=== PATIENT | female | born 1945 | race Caucasian/White ===

== ENCOUNTER 2016-11-04 20:30 | Inpatient (IN) | payer MEDICARE ==
[~2016-11-04] VITALS: Ht 160 cm; Wt 65.8 kg
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
[2016-11-04] MEDS ORDERED: IV NS 0.9% 1,000 ML ONE ×2 (20:46→22:20)
[2016-11-04] MEDS ORDERED: diphenhydrAMINE HCL 50 MG/ML VIAL ONE (20:46)
[2016-11-04] MEDS ORDERED: IV SET PRIMARY 1 EA INFUS.SET MC ONE ×2 (20:46→22:20)
[2016-11-04] MEDS ORDERED: LORAZEPAM INJ 2 MG/ML VIAL ONE (20:47)
[2016-11-04 21:00] LABS: BASOPHILS # (AUTO) 0.1 /CMM (0.0-0.2); BASOPHILS % (AUTO) 0.6 % (0.0-2.0); EOSINOPHILS # (AUTO) 0.2 /CMM (0.0-0.7); EOSINOPHILS % (AUTO) 1.9 % (0.0-6.0); HEMATOCRIT 38 % (33-45); HEMOGLOBIN 12.9 g/dL (11.5-14.8); LYMPHOCYTES # (AUTO) 1.3 /CMM (0.8-4.8); LYMPHOCYTES % (AUTO) 11.6 % (20.0-44.0); MEAN CORPUSCULAR HEMOGLOBIN 30 PG (26.0-33.0); MEAN CORPUSCULAR HGB CONC 34 g/dl (31.0-36.0); MEAN CORPUSCULAR VOLUME 88 fL (82-100); MONOCYTES % (AUTO) 9.1 % (2.0-12.0); NEUTROPHILS # (AUTO) 8.9 /CMM (1.8-8.9); NEUTROPHILS % (AUTO) 76.8 % (43.0-81.0); PLATELET COUNT (AUTO) 457 /CMM (150-450); RDW COEFFICIENT OF VARIATION 16.6 (11.5-15.0); RED BLOOD CELL COUNT(AUTO) 4.38 MIL/uL (4.0-5.2); WHITE BLOOD COUNT (AUTO) 11.5 K/uL (4.3-11.0)
[2016-11-04] MEDS ORDERED: diphenhydrAMINE HCL 50 MG/ML VIAL IV ONE (21:00)
[2016-11-04] MEDS ORDERED: LORAZEPAM INJ 2 MG/ML VIAL IVP ONE (21:00)
[2016-11-04] MEDS ORDERED: IV NS 0.9% 1,000 ML BAG IV ONE ×2 (21:00→22:00)
[2016-11-04 21:07] LABS: CALCIUM, SERUM 9.3 mg/dL (8.5-10.1); CARBON DIOXIDE 27 mmol/L (21-32); CHLORIDE 105 mmol/L (98-107); CREATININE 1.4 mg/dL (0.6-1.3); GLUCOSE 120 mg/dL (74-106); POTASSIUM 4.3 mmol/L (3.5-5.1); SODIUM SERUM 140 mmol/L (136-145); UREA NITROGEN, BLOOD 34 mg/dL (7-18)
[2016-11-04 21:13] LABS: ALANINE AMINOTRANSFERASE 30 U/L (12-78); ALBUMIN 4.1 g/dL (3.4-5.0); ALCOHOL, BLOOD < 3 mg/dL (0-0); ALKALINE PHOSPHATASE 80 U/L (46-116); ASPARTATE AMINOTRANSFERASE 24 U/L (15-37); BILIRUBIN,DIRECT 0.1 mg/dL (0.0-0.2); BILIRUBIN,TOTAL 0.2 mg/dL (0.2-1.0); TOTAL PROTEIN, SERUM 7.2 g/dL (6.4-8.2)
[2016-11-04 21:14] LABS: ACETAMINOPHEN < 2 ug/ml (10-30); SALICYLATE < 2.8 mg/dL (2.8-20.0)
--- NOTE | 2016-11-04 21:32 | NUR ---
URINE COLLECTED BY IN AND OUT CATH PER MD REQUEST, URINE SENT TO LAB WILL CONTINUE TO MONITOR.
[2016-11-04 21:35] LABS: APPEARANCE,URINE Clear (CLEAR); BILIRUBIN,URINE Negative (NEGATIVE); BLOOD, URINE Negative Ery/uL (NEGATIVE); COLOR,URINE Yellow (YELLOW); KETONES,URINE Negative (NEGATIVE); LEUKOCYTE ESTERASE ,URINE Negative (NEGATIVE); NITRITE, URINE Negative (NEGATIVE); PH,URINE 5.5 (5.0-8.0); PROTEIN,URINE Negative (NEGATIVE); UGLUCOSE Negative (NEGATIVE); UROBILINOGEN,URINE 0.2 EU/dL (0.2)
[2016-11-04] MEDS ORDERED: IV NS 0.9% 1,000 ML IV PRN (22:51)
[2016-11-04] MEDS ORDERED: MAG HYDROX/AL HYDROX/SIMETH 30 ML UDC PO PRN (23:00)
[2016-11-04] MEDS ORDERED: ACETAMINOPHEN 325 MG TABLET PO PRN (23:00)
[2016-11-04] MEDS ORDERED: ONDANSETRON HCL/PF 4 MG/2 ML VIAL IVP PRN (23:00)
[2016-11-04] MEDS ORDERED: Z GUARD REMEDY 2 OZ OINT TP PRN (23:00)
[2016-11-04] MEDS ORDERED: MAGNESIUM HYDROXIDE 30 ML UDC PO PRN (23:00)
--- NOTE | 2016-11-04 23:00 | NUR ---
RESTRAINTS TAKE OFF PATIENT CALM AND COOPERATIVE MD MADE AWARE WILL CONTINUE TO MONITOR
[2016-11-04 23:30] VITALS: BP 130/64
--- NOTE | 2016-11-04 23:30 | NUR ---
MS/RN NOTES RECEIVED PT FROM ER IN STABLE CONDITION. AWAKE, ALERT AND ORIENTED X1 (NAME ONLY). GARBLED SPEECH. BREATHING EVENLY ON RA. R FA IV HL, SITE CDI. R SIDE LIP SCAB. TONGUE, TEETH AND GUMS COVERED WITH DRY BLACK LIQUID. NO OTHER SKIN ISSUES. MOVING ALL EXTREMITIES AND ATTEMPTING TO PULL OUT IV LINE. CLEAN AND DRY. BED AT LOWEST POSITION AND LOCKED, SRX3 UP, HOB ELEVATED, SIDE TABLE AND CALL MOLINA WITHIN REACH REACH. BED ALARM ON. WILL CONTINUE TO MONITOR.
--- NOTE | 2016-11-04 23:50 | NUR ---
MS/RN NOTES PT ATTEMPTING TO PULL OUT IV LINE AND FIDGETING. NOT COMPLIANT AT THIS TIME. PLACED ON DOC SOFT WRIST RESTRAINTS. WILL CONTINUE TO MONITOR.
[2016-11-05] MEDS ORDERED: IV SET PRIMARY PUMP SET 1 EA INFUS.SET MC ONE (00:20)
--- NOTE | 2016-11-05 06:34 | NUR ---
MS/RN NOTES NO CHANGE IN MENTAL STATUS, OX1. SHE DOES NOT VERBALIZED EVENT LAST NIGHT IN THE MALL EXCEPT SHE MENTIONED HER FRIEND DAYNE WAS WITH HER. CONTINUES TO HAVE GARBLED SPEECH, INTERMITTENTLY HAS TREMORS OF THE HANDS. NO COMPLAINTS OF PAIN AND APPEARS TO BE COMFORTABLE. TURNED AND REPOSITIONED Q2H. KEPT CLEAN AND DRY. DOC SOFT WRIST RESTRAINTS IN PLACE. ALL NEEDS MET. SRX3 UP, BED AT LOWEST POSITION AND LOCKED, HOB ELEVATED. SIDE TABLE AND CALL MOLINA WITHIN REACH. WILL ENDORSE TO AM SHIFT FOR CONTINUITY OF CARE.
[2016-11-05 07:26] LABS: EOSINOPHILS # (AUTO) 0.1 /CMM (0.0-0.7); EOSINOPHILS % (AUTO) 1.3 % (0.0-6.0); HEMATOCRIT 34 % (33-45); HEMOGLOBIN 11.2 g/dL (11.5-14.8); LYMPHOCYTES # (AUTO) 1.2 /CMM (0.8-4.8); LYMPHOCYTES % (AUTO) 13.5 % (20.0-44.0); MEAN CORPUSCULAR HEMOGLOBIN 30 PG (26.0-33.0); MEAN CORPUSCULAR HGB CONC 33 g/dl (31.0-36.0); MEAN CORPUSCULAR VOLUME 89 fL (82-100); MONOCYTES # (AUTO) 0.6 /CMM (0.1-1.30); MONOCYTES % (AUTO) 7.5 % (2.0-12.0); NEUTROPHILS # (AUTO) 6.7 /CMM (1.8-8.9); NEUTROPHILS % (AUTO) 77.7 % (43.0-81.0); PLATELET COUNT (AUTO) 335 /CMM (150-450); RED BLOOD CELL COUNT(AUTO) 3.78 MIL/uL (4.0-5.2); WHITE BLOOD COUNT (AUTO) 8.7 K/uL (4.3-11.0)
[2016-11-05 07:42] LABS: CALCIUM, SERUM 7.8 mg/dL (8.5-10.1); MAGNESIUM 1.7 mg/dL (1.8-2.4); PHOSPHORUS 2.4 mg/dL (2.5-4.9); POTASSIUM 3.9 mmol/L (3.5-5.1)
--- NOTE | 2016-11-05 07:54 | NUR ---
RN OPENING NOTES RECEIVED PATIENT IN BED, AWAKE, HEAD OF BED ELEVATED. NO SOB OR DISTRESS NOTED. A/O X 1, PATIENT IS CONFUSED. NO IV ON PLACE. KEPT PATIENT CLEAN AND COMFORTABLE IN BED, CALL LIGHT WITHIN PATIENT REACH, WILL CONTINUE TO MONITOR ACCORDINGLY.
[2016-11-05 08:00] VITALS: BP 128/64
[2016-11-05] MEDS ORDERED: LEVO100T9 PO (08:40)
[2016-11-05] MEDS ORDERED: ALBU2.5V38 IH (08:40)
[2016-11-05] MEDS ORDERED: DEXT10TA7 PO (08:40)
[2016-11-05] MEDS ORDERED: HYDR-548 PO (08:40)
[2016-11-05] MEDS ORDERED: LIDO30AD10 TP (08:40)
[2016-11-05] MEDS ORDERED: DIAZ10TA4 PO (08:40)
--- NOTE | 2016-11-05 09:15 | NUR ---
RN NOTES DEJUAN (NEXT OF KIN) CALLED TO CHECK ON PATIENT, SHE SAID THAT SHE MAY COME LATER ON
[2016-11-05] MEDS: PANTOPRAZOLE 40 MG TABLET.DR PO SCH (09:27)
[2016-11-05] MEDS ORDERED: Magnesium 1GM/D5W 100ML PREMIX 100 ML IV SCH (13:00)
[2016-11-05] MEDS ORDERED: K PHOS NEUTRAL 250 MG TABLET PO ONE ×2 (13:30→18:00)
[2016-11-05 16:00] VITALS: BP 127/81
--- NOTE | 2016-11-05 16:52 | NUR ---
RN NOTES DR. DUQUE CANCEL MIDLINE. AWARE THAT PATIENT DO NOT HAVE IV.
[2016-11-05] MEDS: MAGNESIUM OXIDE 400 MG TABLET PO SCH ×2 (17:54→22:17)
--- NOTE | 2016-11-05 19:15 | NUR ---
RN NOTE RECEIVED REPORT. PT AAOX3, NO C/O ANY PAIN OR DISCOMFORT AT THIS TIME, BREATHING NON-EVEN AND LABORED. PRESSURED SPEECH, AND SHAKY HANDS OBSERVED. NO IV ACCESS AT THIS TIME - AWAITING MIDLINE. CALL LIGHT IN REACH. SEIZURE PRECAUTIONS RENDERED. WILL MONITOR. Addendum: 11/05/16 at 2144 by CARO HIGH RN MIDLINE ORDERED CANCELED.
--- NOTE | 2016-11-05 19:39 | NUR ---
RN NOTES ALL NEEDS PROVIDED, ATTENDED, AND ANTICIPATED. KEPT PATIENT CLEAN AND COMFORTABLE IN BED. CALL LIGHT WITHIN PATIENT REACH. WILL CONTINUE TO MONITOR ACCORDINGLY. ENDORSED TO NEXT SHIFT RN TO CONTINUE CARE.
[2016-11-05 20:00] VITALS: BP_SYST 124; BP_SYST 145; BP_SYST 84; BP_DIAS 59; BP_DIAS 60; BP_DIAS 75
--- NOTE | 2016-11-06 01:00 | NUR ---
RN NOTE PT RESTING COMFORTABLY IN BED WITH EYES CLOSED. NO DISTRESS NOTED .WILL MONITOR.
--- NOTE | 2016-11-06 06:00 | NUR ---
RN NOTE PT VERBALIZING NEED FOR MEDICATION BUT CAN NOT STATE PROPER NAME OF DRUGS + DOSAGES. LEFT MESSAGE ON [employer] PHONE [[phone]] TO HELP US WITH INFORMATION.
--- NOTE | 2016-11-06 06:49 | NUR ---
RN NOTE NO SIGNIFICANT CHANGES AT NIGHT. PT AAOX4, ANXIOUS AND RESTLESS - PT STATES HER HANDS SHAKE WHEN ANXIOUS. BREATHING NON-LABORED AND EVEN. NO IV ACCESS AT THIS TIME - MD AWARE. GOOD PO INTAKE, AMBULATED WITH NURSE AROUND UNIT. WANTS TO GO HOME. FOR PSYCH CONSULT TODAY. CALL LIGHT IN REACH, WILL F/U WITH DAY SHIFT FOR PRISCILA.
--- NOTE | 2016-11-06 07:44 | NUR ---
RN OPENING NOTES RECEIVED PATIENT IN BED, AWAKE, HEAD OF BED ELEVATED. NO SOB OR DISTRESS NOTED. A/O X 1, PATIENT IS CONFUSED. NO IV ON PLACE, MD AWARE. KEPT PATIENT CLEAN AND COMFORTABLE IN BED, CALL LIGHT WITHIN PATIENT REACH, WILL CONTINUE TO MONITOR ACCORDINGLY.
[2016-11-06 07:48] LABS: CALCIUM, SERUM 8.7 mg/dL (8.5-10.1); CREATININE 0.8 mg/dL (0.6-1.3); PHOSPHORUS 2.1 mg/dL (2.5-4.9); POTASSIUM 4.4 mmol/L (3.5-5.1)
[2016-11-06 08:00] VITALS: BP 128/78
[2016-11-06] MEDS: PANTOPRAZOLE 40 MG TABLET.DR PO SCH (08:41)
--- NOTE | 2016-11-06 11:45 | NUR ---
RN NOTES DR. ZAMUDIO ORDERED PHYSC EVALUATION.
--- NOTE | 2016-11-06 11:50 | NUR ---
RN NOTES I PAGED CUSTOMER SUPPORT ENGINEER LUIS MANUEL BANKS AND HE ORDERED TO CONTINUE HOME MEDS.
[2016-11-06] MEDS ORDERED: PAROXETINE HCL 20 MG TABLET PO SCH (13:00)
[2016-11-06] MEDS ORDERED: LamoTRIgine 100 MG TABLET PO SCH (13:00)
[2016-11-06] MEDS ORDERED: BUPROPION XL 150 MG TAB.ER.24 PO SCH (13:00)
[2016-11-06] MEDS ORDERED: LORAZEPAM 1 MG TABLET PO ONE (13:30)
[2016-11-06] MEDS ORDERED: K PHOS NEUTRAL 250 MG TABLET PO ONE (16:00)
[2016-11-06] MEDS ORDERED: LEVOTHYROXINE SODIUM 100 MCG TABLET PO SCH (16:00)
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
== END 2016-11-06 18:00 | disposition home or self-care (01) | DRG 917 ==
LOC: ER 20:31 → TELE 22:46 → MED 11-05 00:17
PROVIDERS: ADMIT Legal Medicine; ATTEND Legal Medicine
DX: T43.621A Poisoning by amphetamines, accidental (unintentional), initial encounter (principal); G92 Toxic encephalopathy; N17.0 Acute kidney failure with tubular necrosis; F23 Brief psychotic disorder; Y92.009 Unspecified place in unspecified non-institutional (private) residence as the place of occurrence of the external cause; D72.829 Elevated white blood cell count, unspecified; E83.42 Hypomagnesemia
CPT/HCPCS: 36415; 70450-TC; 80048-TC; 80076-TC; 80305; 81000-TC; 82553-TC; 83735-TC; 84100-TC; 84443-TC; 85025-TC; 87081-TC; A4606; G0480; J1200; J2060; J7030; Z7610